=== PATIENT | male | born 1970 | race Caucasian/White ===

== ENCOUNTER 2020-09-22 22:12 | Inpatient (IN) | payer OTHER ==
[~2020-09-22] VITALS: Ht 193 cm; Wt 120.8 kg
[2020-09-22] MEDS ORDERED: CLINDAMYCIN 600 MG/D5% WATER 50 ML IV ONE (23:19)
[2020-09-22] MEDS ORDERED: MORPHINE SULFATE 4 MG/1ML SYG ONE (23:19)
[2020-09-22] MEDS ORDERED: ONDANSETRON HCL 4 MG/2 ML VIAL ONE (23:19)
[2020-09-22] MEDS ORDERED: SODIUM CHLORIDE 0.9% 1000ML 1,000 ML IV ONE (23:20)
[2020-09-22 23:21] LABS: BASOPHILS % (AUTO) 0.5 % (0.0-5.0); EOSINOPHILS % (AUTO) 0.9 % (0.0-8.0); HEMATOCRIT 38.9 % (42-54); LYMPHOCYTES % (AUTO) 15.8 % (21.0-51.0); MEAN CORPUSCULAR HEMOGLOBIN 33.1 pg (27.0-33.0); MEAN CORPUSCULAR HGB CONC 35.2 g/dL (32.0-36.0); MONOCYTES % (AUTO) 11.6 % (3.0-13.0); NEUTROPHILS % (AUTO) 70.7 % (40.0-77.0); PLATELET COUNT (AUTO) 274 K/uL (130-400); RED BLOOD CELL COUNT(AUTO) 4.14 MIL/uL (4.50-6.20); RED CELL DISTRIBUTION WIDTH 11.9 % (11.0-15.5); WHITE BLOOD COUNT (AUTO) 13.1 K/uL (4.8-10.8)
[2020-09-22 23:36] LABS: CREATININE 1.1 mg/dL (0.5-1.5); POTASSIUM 4.5 mmol/L (3.5-5.1)
[2020-09-22 23:40] LABS: ALBUMIN 3.8 g/dL (3.5-5.0); BILIRUBIN,TOTAL 0.3 mg/dL (0.2-1.0); CRP QUANTITATIVE 136.9 mg/L (0.00-9.0); TOTAL PROTEIN, SERUM 7.7 g/dL (6.0-8.3)
[2020-09-22] MEDS ORDERED: VANCOMYCIN PROTOCOL PER PHARMACY IV SCH (23:45)
[2020-09-22] MEDS ORDERED: ONDANSETRON HCL 4 MG/2 ML VIAL IVP PRN (23:45)
[2020-09-22] MEDS: SODIUM CHLORIDE 0.9% 1000ML 1,000 ML IV SCH (23:45)
[2020-09-23] MEDS ORDERED: VANCOMYCIN 1GM+NS 250ML 250 ML IV SCH (01:00)
[2020-09-23] MEDS ORDERED: ZOSYN 3.375GM+NS 50ML 50 ML IV ONE ×3 (02:13→17:41)
[2020-09-23] MEDS ORDERED: COMPOUND IV REFRIGERATED 1 EACH IVSOLN MISC PRN (06:30)
[2020-09-23] MEDS: ZOSYN 3.375GM+NS 50ML 50 ML IV SCH ×3 (08:00→16:00)
[2020-09-23] MEDS: VANCOMYCIN 1.5 GM in SODIUM CHLORIDE 0.9% 250 ML IV SCH ×2 (09:00→21:00)
[2020-09-23] MEDS: SODIUM CHLORIDE 0.9% 1000ML 1,000 ML IV SCH ×2 (09:45→19:45)
[2020-09-23] MEDS ORDERED: TAMS-1 PO (11:48)
[2020-09-23] MEDS ORDERED: AMLO-97 PO (11:48)
[2020-09-23 14:53] LABS: APPEARANCE,URINE Clear (CLEAR); BILIRUBIN,URINE Negative (NEGATIVE); COLOR,URINE Yellow (YELLOW); GLUCOSE, URINE (UA) Negative (NEGATIVE); KETONES,URINE 15 mg/dL (NEGATIVE); LEUKOCYTE ESTERASE ,URINE Negative (NEGATIVE); NITRATE,URINE Negative (NEGATIVE); OCCULT BLOOD,URINE Negative (NEGATIVE); PH,URINE 6.5 (5.0-8.0); PROTEIN,URINE Negative (NEGATIVE)
[2020-09-23] MEDS ORDERED: TAMSULOSIN HCL 0.4 MG CAP.ER.24H ONE (21:31)
[2020-09-23] MEDS ORDERED: VANCOMYCIN 1GM+NS 250ML 250 ML IV ONE (21:31)
[2020-09-23 23:25] VITALS: BP 109/73
[2020-09-24] MEDS: ZOSYN 3.375GM+NS 50ML 50 ML IV SCH ×3 (00:16→16:12)
[2020-09-24] MEDS: SODIUM CHLORIDE 0.9% 1000ML 1,000 ML IV SCH ×2 (02:35→16:12)
[2020-09-24 03:59] VITALS: BP 110/74
[2020-09-24 07:00] VITALS: BP 112/76
[2020-09-24] MEDS: VANCOMYCIN 1.5 GM in SODIUM CHLORIDE 0.9% 250 ML IV SCH ×2 (11:28→21:13)
[2020-09-24 11:30] VITALS: BP 134/93
[2020-09-24] MEDS: MORPHINE SULFATE 2 MG/ML 1ML SYG IVP PRN (14:57)
[2020-09-24 15:30] VITALS: BP 125/66
[2020-09-24 20:22] VITALS: BP 107/67
[2020-09-24 23:35] VITALS: BP 103/63
[2020-09-25] MEDS: ZOSYN 3.375GM+NS 50ML 50 ML IV SCH ×4 (00:32→23:22)
[2020-09-25] MEDS: SODIUM CHLORIDE 0.9% 1000ML 1,000 ML IV SCH ×3 (00:33→20:35)
[2020-09-25 04:00] VITALS: BP 107/68
[2020-09-25 07:00] VITALS: BP 114/87
[2020-09-25 11:30] VITALS: BP 129/79
[2020-09-25] MEDS: VANCOMYCIN 1.5 GM in SODIUM CHLORIDE 0.9% 250 ML IV SCH ×2 (12:23→20:35)
[2020-09-25] MEDS: MORPHINE SULFATE 2 MG/ML 1ML SYG IVP PRN (14:31)
[2020-09-25 15:30] VITALS: BP 127/84
[2020-09-25 20:00] VITALS: BP 131/77
[2020-09-25 23:48] VITALS: BP 122/85
[2020-09-26] VITALS (22 sets, daily range): BP systolic 90–166; BP diastolic 47–96
[2020-09-26] MEDS: SODIUM CHLORIDE 0.9% 1000ML 1,000 ML IV SCH ×3 (01:41→17:45)
[2020-09-26 05:20] LABS: BASOPHILS % (AUTO) 0.8 % (0.0-5.0); EOSINOPHILS % (AUTO) 4.1 % (0.0-8.0); HEMATOCRIT 38.8 % (42-54); LYMPHOCYTES % (AUTO) 29.5 % (21.0-51.0); MEAN CORPUSCULAR HEMOGLOBIN 31.6 pg (27.0-33.0); MEAN CORPUSCULAR HGB CONC 33.5 g/dL (32.0-36.0); MEAN CORPUSCULAR VOLUME 94.4 fL (79-99); MONOCYTES % (AUTO) 11.4 % (3.0-13.0); NEUTROPHILS % (AUTO) 53.8 % (40.0-77.0); PLATELET COUNT (AUTO) 336 K/uL (130-400); RED BLOOD CELL COUNT(AUTO) 4.11 MIL/uL (4.50-6.20); RED CELL DISTRIBUTION WIDTH 11.4 % (11.0-15.5); WHITE BLOOD COUNT (AUTO) 7.7 K/uL (4.8-10.8)
[2020-09-26 05:39] LABS: INR 1.02 (0.85-1.15); PROTHROMBIN TIME 11.1 SEC (9.6-11.6)
[2020-09-26 05:40] LABS: PARTIAL THROMBOPLASTIN TIME 26.4 SEC (26.3-35.5)
[2020-09-26 05:44] LABS: POTASSIUM 3.7 mmol/L (3.5-5.1)
[2020-09-26] MEDS: VANCOMYCIN 1.5 GM in SODIUM CHLORIDE 0.9% 250 ML IV SCH (08:40)
[2020-09-26] MEDS: ZOSYN 3.375GM+NS 50ML 50 ML IV SCH ×3 (11:02→22:10)
[2020-09-26] MEDS ORDERED: LIDOCAINE PF 2% 5ML ABBOJECT ONE (13:34)
[2020-09-26] MEDS ORDERED: PROPOFOL 10 MG/ML 20ML VIAL IV ONE (13:35)
[2020-09-26] MEDS ORDERED: FENTANYL CITRATE PF 50 MCG/1 ML 2ML VIAL ONE (13:35)
[2020-09-26] MEDS ORDERED: KETOROLAC TROMETHAMINE 30MG/ML ONE (14:01)
[2020-09-26] MEDS ORDERED: BUPIVACAINE/PF 0.5% 30ML VIAL ONE (14:02)
[2020-09-26] MEDS ORDERED: MORPHINE SULFATE 4 MG/1ML SYG IVP PRN (16:30)
[2020-09-26] MEDS ORDERED: VANCOMYCIN PROTOCOL PER PHARMACY IV SCH (23:15)
[2020-09-27 04:00] VITALS: BP 139/76
[2020-09-27 08:00] VITALS: BP 130/80
[2020-09-27] MEDS ORDERED: CADEXOMER IODINE 40 GM GEL TP SCH (09:00)
[2020-09-27] MEDS ORDERED: VANCOMYCIN 1.5 GM in SODIUM CHLORIDE 0.9% 250 ML IV SCH (09:00)
[2020-09-27] MEDS: ZOSYN 3.375GM+NS 50ML 50 ML IV SCH (09:33)
[2020-09-27 12:00] VITALS: BP 125/85
[2020-09-27] MEDS: SODIUM CHLORIDE 0.9% 1000ML 1,000 ML IV SCH (13:40)
== END 2020-09-27 18:40 | disposition home or self-care (01) | DRG 580 ==
LOC: EDH 22:12 → EDHIP 23:20 → OBSVTOIN 23:20 → 3CH 09-23 22:35
PROVIDERS: ADMIT Internal Medicine; ATTEND Internal Medicine
PROC: 0J990ZZ Drainage of Buttock Subcutaneous Tissue and Fascia, Open Approach (ICD-10-PCS; principal; 2020-09-26 13:37)
DX: L02.31 Cutaneous abscess of buttock (principal); E87.1 Hypo-osmolality and hyponatremia; L03.317 Cellulitis of buttock; I10 Essential (primary) hypertension; E66.9 Obesity, unspecified; Z72.0 Tobacco use; D72.829 Elevated white blood cell count, unspecified; Z20.822 Contact with and (suspected) exposure to COVID-19; Z68.32 Body mass index [BMI] 32.0-32.9, adult; L98.419 Non-pressure chronic ulcer of buttock with unspecified severity
CPT/HCPCS: 36415; 72192; 80048; 80053; 80202; 81003; 84484; 85025; 85610; 85730; 86140; 87040; 87070; 87076; 87077; 87186; 87205; 87426; 99291; A6266; G0378; J1885; J2001; J2270; J2405; J2543; J2704; J3010; J3370; J3490; J7030; J7050; U0003

== ENCOUNTER → 2020-10-13 | Outpatient (CLI) | payer OTHER ==
[~2020-10-13] MED LIST: AMLO-97 PO; HONEY 1 APPL/ML TUBE TP ONE; LIDOCAINE HCL 2% JELLY 5 ML TP ONE; TAMS-1 PO
== END | disposition home or self-care (01) ==
LOC: WHH 09:45
PROVIDERS: ATTEND Family Medicine
DX: T81.89XA Other complications of procedures, not elsewhere classified, initial encounter (principal); L02.31 Cutaneous abscess of buttock; S31.829A Unspecified open wound of left buttock, initial encounter; I10 Essential (primary) hypertension; N40.0 Benign prostatic hyperplasia without lower urinary tract symptoms; F17.290 Nicotine dependence, other tobacco product, uncomplicated; Z79.82 Long term (current) use of aspirin; X58.XXXA Exposure to other specified factors, initial encounter; Y93.89 Activity, other specified; Y83.8 Other surgical procedures as the cause of abnormal reaction of the patient, or of later complication, without mention of misadventure at the time of the procedure; Y92.238 Other place in hospital as the place of occurrence of the external cause
CPT/HCPCS: 11042; A4450

== ENCOUNTER → 2020-10-20 | Outpatient (CLI) | payer OTHER | END | disposition home or self-care (01) | LOC: WHH 09:45 | PROVIDERS: ATTEND Family Medicine | DX: T81.89XD Other complications of procedures, not elsewhere classified, subsequent encounter (principal); L02.31 Cutaneous abscess of buttock; S31.829D Unspecified open wound of left buttock, subsequent encounter; I10 Essential (primary) hypertension; N40.0 Benign prostatic hyperplasia without lower urinary tract symptoms; F17.290 Nicotine dependence, other tobacco product, uncomplicated; Z79.82 Long term (current) use of aspirin; X58.XXXD Exposure to other specified factors, subsequent encounter; Y83.8 Other surgical procedures as the cause of abnormal reaction of the patient, or of later complication, without mention of misadventure at the time of the procedure | CPT/HCPCS: 99213; A4450 ==

== ENCOUNTER → 2020-11-03 | Outpatient (CLI) | payer OTHER | END | disposition home or self-care (01) | LOC: WHH 10:00 | PROVIDERS: ATTEND Family Medicine | DX: T81.89XD Other complications of procedures, not elsewhere classified, subsequent encounter (principal); L02.31 Cutaneous abscess of buttock; S31.829D Unspecified open wound of left buttock, subsequent encounter; I10 Essential (primary) hypertension; N40.0 Benign prostatic hyperplasia without lower urinary tract symptoms; F17.290 Nicotine dependence, other tobacco product, uncomplicated; Z79.82 Long term (current) use of aspirin; X58.XXXD Exposure to other specified factors, subsequent encounter; Y83.8 Other surgical procedures as the cause of abnormal reaction of the patient, or of later complication, without mention of misadventure at the time of the procedure | CPT/HCPCS: 11042 ==

== ENCOUNTER → 2020-11-10 | Outpatient (CLI) | payer OTHER ==
[~2020-11-10] MED LIST changes: -HONEY 1 APPL/ML TUBE TP ONE; -LIDOCAINE HCL 2% JELLY 5 ML TP ONE
== END | disposition home or self-care (01) ==
LOC: WHH 09:55
PROVIDERS: ATTEND Family Medicine
DX: T81.89XD Other complications of procedures, not elsewhere classified, subsequent encounter (principal); L02.31 Cutaneous abscess of buttock; S31.829D Unspecified open wound of left buttock, subsequent encounter; I10 Essential (primary) hypertension; N40.0 Benign prostatic hyperplasia without lower urinary tract symptoms; F17.290 Nicotine dependence, other tobacco product, uncomplicated; Z79.82 Long term (current) use of aspirin; X58.XXXD Exposure to other specified factors, subsequent encounter; Y83.8 Other surgical procedures as the cause of abnormal reaction of the patient, or of later complication, without mention of misadventure at the time of the procedure
CPT/HCPCS: 99214

== ENCOUNTER 2021-06-17 21:49 | Emergency (ER) | payer OTHER ==
[~2021-06-17] VITALS: Ht 193 cm; Wt 124.7 kg
[~2021-06-17 21:49] MED LIST changes: +AMLO-142 PO; -AMLO-97 PO
[2021-06-17] MEDS ORDERED: L.E.T. GEL 3ML SYG TP ONE ×2 (22:35→23:00)
[2021-06-17] MEDS ORDERED: TETANUS/DIPHTHERIA TOXOID [ADULT] 0.5 ML VIAL IM ONE ×2 (22:35→23:00)
[2021-06-17] MEDS ORDERED: AMOX/CLAV 875/125MG TAB PO ONE (23:00)
[2021-06-17] MEDS ORDERED: IBUP-2070 PO (23:32)
[2021-06-17] MEDS ORDERED: AMOX-429 PO (23:32)
[2021-06-17] MEDS ORDERED: MUPI22OI2 TP (23:32)
[2021-06-17 23:42] VITALS: BP 125/81
== END 2021-06-17 23:43 | disposition home or self-care (01) ==
LOC: EDH 21:49
DX: S61.412A Laceration without foreign body of left hand, initial encounter (principal); S61.213A Laceration without foreign body of left middle finger without damage to nail, initial encounter; I10 Essential (primary) hypertension; Z79.899 Other long term (current) drug therapy; Z79.1 Long term (current) use of non-steroidal anti-inflammatories (NSAID); W54.0XXA Bitten by dog, initial encounter; Y93.89 Activity, other specified; Y92.89 Other specified places as the place of occurrence of the external cause; Y99.8 Other external cause status
CPT/HCPCS: 12001; 90471; 90714

== ENCOUNTER 2021-06-25 14:46 | Emergency (ER) | payer OTHER ==
[~2021-06-25] VITALS: Ht 193 cm; Wt 124.7 kg
[~2021-06-25 14:46] MED LIST changes: +AMOX-429 PO; +IBUP-2070 PO; +MUPI22OI2 TP
[2021-06-25 15:21] VITALS: BP 135/82
== END 2021-06-25 15:27 | disposition home or self-care (01) ==
LOC: EDH 14:46
DX: S61.412D Laceration without foreign body of left hand, subsequent encounter (principal); I10 Essential (primary) hypertension; E66.9 Obesity, unspecified; Z68.33 Body mass index [BMI] 33.0-33.9, adult; Z79.1 Long term (current) use of non-steroidal anti-inflammatories (NSAID); Z79.899 Other long term (current) drug therapy; X58.XXXD Exposure to other specified factors, subsequent encounter
CPT/HCPCS: 99281

== ENCOUNTER 2023-03-25 09:52 | Day surgery (SDC) | payer OTHER ==
[2023-03-24 16:17] VITALS: BP 134/68; PULSE 67; RESP 20
[2023-03-25] VITALS (17 sets, daily range): BP systolic 98–130; BP diastolic 62–94; PULSE 62–84; RESP 11–19
[~2023-03-25] VITALS: Ht 193 cm; Wt 126.4 kg
[~2023-03-25 09:52] MED LIST changes: -AMOX-429 PO; -IBUP-2070 PO; -MUPI22OI2 TP; +levaquin PO
[2023-03-25] MEDS ORDERED: LACTATED RINGERS 1000ML 1,000 ML IV ONE (10:02)
[2023-03-25] MEDS: CEFTRIAXONE 1G VIAL ONE ×2 (10:04→11:44)
[2023-03-25] MEDS ORDERED: FENTANYL CITRATE PF 50 MCG/1 ML 2ML VIAL ONE ×2 (11:41→11:59)
[2023-03-25] MEDS ORDERED: PROPOFOL 10 MG/ML 20ML VIAL IV ONE ×2 (11:41→11:50)
[2023-03-25] MEDS ORDERED: LIDOCAINE PF 100MG/5ML (2%) SYRINGE 5ML ONE (11:41)
[2023-03-25] MEDS ORDERED: MIDAZOLAM HCL 1 MG/ML 2ML VIAL ONE (11:42)
[2023-03-25] MEDS ORDERED: ONDANSETRON 4MG INJ ONE ×2 (12:23→12:48)
[2023-03-25] MEDS ORDERED: MEPERIDINE-PF 25 MG/ML SYG ONE (12:48)
[2023-03-25] MEDS ORDERED: PHENAZOPYRIDINE HCL 200 MG TABLET ONE (13:38)
== END 2023-03-25 14:10 | disposition home or self-care (01) ==
LOC: DAH 09:52
PROVIDERS: ATTEND Urology
DX: N32.0 Bladder-neck obstruction (principal); Z20.822 Contact with and (suspected) exposure to COVID-19; R39.14 Feeling of incomplete bladder emptying; R39.12 Poor urinary stream; I10 Essential (primary) hypertension; E66.9 Obesity, unspecified; Z80.3 Family history of malignant neoplasm of breast; Z79.899 Other long term (current) drug therapy; Z87.891 Personal history of nicotine dependence; Z85.46 Personal history of malignant neoplasm of prostate; Z90.79 Acquired absence of other genital organ(s); Z72.89 Other problems related to lifestyle
CPT/HCPCS: 87426; 52281; A6260; A4663; A4354; A4340; J7120; J3010 ×2; J2001; J0696; J2250; J2704 ×2; J2405 ×2; J2175; A4358; C1769; A4215; A4223; A4222; A4221; A5113; A4600; A4510; J3490

== ENCOUNTER 2023-04-08 08:23 | Day surgery (SDC) | payer OTHER ==
[2023-04-06 12:44] LABS: BASOPHILS # (AUTO) 0.05 K/uL (0.00-0.20); BASOPHILS % (AUTO) 0.7 % (0.0-5.0); EOSINOPHILS # (AUTO) 0.12 K/uL (0.00-0.70); EOSINOPHILS % (AUTO) 1.6 % (0.0-8.0); HEMATOCRIT 45.1 % (42-54); IMMATURE GRANULOCYTE ABSOLUTE 0.02 K/uL (0-1); LYMPHOCYTES # (AUTO) 1.9 K/uL (1.0-4.8); LYMPHOCYTES % (AUTO) 25.7 % (21.0-51.0); MEAN CORPUSCULAR HEMOGLOBIN 31.8 pg (27.0-33.0); MEAN CORPUSCULAR HGB CONC 34.6 g/dL (32.0-36.0); MEAN CORPUSCULAR VOLUME 91.9 fL (79-99); MONOCYTES # (AUTO) 0.7 K/uL (0.1-1.0); MONOCYTES % (AUTO) 9.3 % (3.0-13.0); NEUTROPHILS # (AUTO) 4.6 K/uL (1.8-7.7); NEUTROPHILS % (AUTO) 62.4 % (40.0-77.0); PLATELET COUNT (AUTO) 299 K/uL (130-400); RED BLOOD CELL COUNT(AUTO) 4.91 MIL/uL (4.50-6.20); RED CELL DISTRIBUTION WIDTH 13.2 % (11.0-15.5); WHITE BLOOD COUNT (AUTO) 7.4 K/uL (4.8-10.8)
[2023-04-06 13:29] VITALS: BP 156/91; PULSE 92; RESP 17
[~2023-04-08] VITALS: Ht 193 cm; Wt 126.4 kg
[2023-04-08] VITALS (17 sets, daily range): BP systolic 125–164; BP diastolic 65–93; PULSE 68–82; RESP 16–20
[~2023-04-08 08:23] MED LIST changes: -TAMS-1 PO; -levaquin PO
[2023-04-08] MEDS ORDERED: LACTATED RINGERS 1000ML 1,000 ML IV ONE (09:22)
[2023-04-08] MEDS ORDERED: CEFTRIAXONE 1G VIAL ONE (09:22)
[2023-04-08 10:05] LABS: CREATININE 0.9 mg/dL (0.5-1.5)
[2023-04-08] MEDS ORDERED: DEXAMETHASONE SOD PHOSPHATE 10MG/ML 1ML VIAL ONE (10:19)
[2023-04-08] MEDS ORDERED: LIDOCAINE PF 100MG/5ML (2%) SYRINGE 5ML ONE (10:19)
[2023-04-08] MEDS ORDERED: SUCCINYLCHOLINE 200MG/10ML SYR ONE (10:19)
[2023-04-08] MEDS ORDERED: NEOSTIGMINE 5MG/5ML SYR IV ONE (10:23)
[2023-04-08] MEDS ORDERED: ROCURONIUM 10MG/1ML SYR 10 MG/ML ML ONE (10:23)
[2023-04-08] MEDS ORDERED: PROPOFOL 10 MG/ML 20ML VIAL IV ONE ×2 (10:23→10:24)
[2023-04-08] MEDS ORDERED: ONDANSETRON 4MG INJ ONE ×2 (10:23→12:56)
[2023-04-08] MEDS ORDERED: MIDAZOLAM HCL 1 MG/ML 2ML VIAL ONE (10:23)
[2023-04-08] MEDS ORDERED: GLYCOPYRROLATE 1 MG/5 ML SYRINGE ONE (10:23)
[2023-04-08] MEDS ORDERED: FENTANYL CITRATE PF 50 MCG/1 ML 2ML VIAL ONE ×2 (10:24→11:47)
[2023-04-08] MEDS ORDERED: CEFTRIAXONE 1G VIAL IVPB ONE (11:37)
[2023-04-08] MEDS ORDERED: MEPERIDINE-PF 25 MG/ML SYG ONE ×2 (12:56→13:04)
[2023-04-08] MEDS ORDERED: PHEN-776 PO (13:09)
[2023-04-08] MEDS ORDERED: PHENAZOPYRIDINE HCL 200 MG TABLET ONE (13:12)
[2023-04-08] MEDS ORDERED: TRAM50TA4 PO (13:22)
== END 2023-04-08 14:10 | disposition home or self-care (01) ==
LOC: DAH 08:23
PROVIDERS: ATTEND Urology
DX: N32.0 Bladder-neck obstruction (principal); Z20.822 Contact with and (suspected) exposure to COVID-19; R33.8 Other retention of urine; I10 Essential (primary) hypertension; Z72.89 Other problems related to lifestyle; Z85.46 Personal history of malignant neoplasm of prostate; Z88.8 Allergy status to other drugs, medicaments and biological substances; Z80.3 Family history of malignant neoplasm of breast
CPT/HCPCS: 85025; 36415 ×2; 52640; 52310; 80048; A4663; J7120 ×2; J3010 ×2; J0330; J3490; J1100; J2710; J2001; J0696 ×2; J2250; J2704 ×2; J2405 ×2; J2175 ×2; A4358; A4215; A4223; A4222; A4221; A4600; A5113

== ENCOUNTER → 2023-11-18 | Outpatient (CLI) | payer OTHER ==
[~2023-11-18] MED LIST changes: +PHEN-776 PO; +TRAM50TA4 PO
== END | disposition home or self-care (01) ==
LOC: RAH 10-11 13:13
PROVIDERS: ATTEND Physical Medicine & Rehabilitation
DX: M54.12 Radiculopathy, cervical region (principal); M54.2 Cervicalgia
CPT/HCPCS: 72050